=== PATIENT | male | born 1970 | race Caucasian/White ===

== ENCOUNTER → 2024-08-05 06:45 | Outpatient (REF) | payer OTHER, SELFPAY | LOC: MRI 3T 06:45 | PROVIDERS: ATTENDING PHYSICIAN Anesthesiology; FAMILY PHYSICIAN Family Medicine | DX: M54.16 Radiculopathy, lumbar region (principal) | CPT/HCPCS: 72148 ==

== ENCOUNTER 2024-12-23 06:27 | Day surgery (SDC) | payer OTHER, SELFPAY | END 2024-12-23 13:15 | disposition home or self-care (01) | LOC: GI 06:27 | PROVIDERS: ATTENDING PHYSICIAN Internal Medicine Gastroenterology | DX: Z12.11 Encounter for screening for malignant neoplasm of colon (principal); K57.30 Diverticulosis of large intestine without perforation or abscess without bleeding; K64.8 Other hemorrhoids | CPT/HCPCS: G0121 ==

== ENCOUNTER → 2025-04-08 16:00 | Outpatient (REF) | payer OTHER, SELFPAY | LOC: RCS 16:00 | PROVIDERS: ATTENDING PHYSICIAN Internal Medicine; FAMILY PHYSICIAN Family Medicine | DX: I49.5 Sick sinus syndrome (principal) | CPT/HCPCS: 93306 ==

== ENCOUNTER 2025-04-12 05:57 | Day surgery (SDC) | payer OTHER, SELFPAY ==
[2025-04-05 08:50] LABS: % Basophils 0.7 % (0-2); % Eosinophils 1.7 % (0-6); % Immature Granulocytes 0.2 % (0-0.5); % Lymphocytes 42.9 % (20.5-51.1); % Monocytes 12.3 % (1.7-9.3); % Neutrophils 42.2 % (42.2-75.2); Absolute Eosinophils 0.1 10^3/uL (0-0.7); Absolute Lymphocytes 2.3 10^3/uL (1.2-3.4); Absolute Monocytes 0.7 10^3/uL (0.1-0.6); Absolute Neutrophils 2.3 10^3/uL (1.4-6.5); Hematocrit 40.7 % (39.0-52.0); Hemoglobin 14.1 g/dL (13.0-18.0); Mean Corp Hgb Conc. 34.6 g/dL (33.0-37.0); Mean Corpuscular Hgb 32.6 pg (27.0-31.0); Nucleated Red Blood Cells % 0 % (-); Platelet Count 189 10^3/uL (130-400); Red Blood Cell Count 4.33 10^6/uL (4.70-6.10); Red Cell Dist. Width 12.4 % (11.5-14.5); White Blood Cell Count 5.4 10^3/uL (4.8-10.8)
[2025-04-05 09:24] LABS: ALT (SGPT) 19 U/L (0-50); AST (SGOT) 21 U/L (17-59); Albumin 3.9 g/dl (3.5-5.0); Alkaline Phosphatase 35 U/L (38-126); Blood Urea Nitrogen 24 mg/dl (9-20); Calcium 9.2 mg/dl (8.4-10.2); Carbon Dioxide 26 mmol/L (22-30); Chloride 107 mmol/L (98-107); Glucose 103 mg/dl (70-99); Potassium 4.8 mmol/L (3.5-5.1); Sodium 141 mmol/L (135-145); Total Bilirubin 0.4 mg/dl (0.2-1.3); Total Protein 6.2 g/dl (6.3-8.2); eGFR > 60.00
[2025-04-05 13:09] VITALS: BMI 28.4
[2025-04-12] VITALS (15 sets, daily range): BP systolic 113–134; BP diastolic 69–97; BMI 27.3
--- NOTE | 2025-04-12 09:22 | ITS.CL.PACE ---
[employer] - Pacemaker Implant
Pacemaker Implant
Procedure Report:
Leadless Pacemaker (Aveir) Implantation:
Mr. Espinoza is a very pleasant 54 yr old gentleman with sick sinus syndrome with occasioanl sinus pause without any ventricular escape with hx of presyncope is noted to have symptomatic bradycardia and is recommended a pacemaker. Given he is
conducting most of the time and his pacing requirement is expected to be low, will proceed with leadless pacemaker with retrievability to replace and benefit for placement of atrial lead if needed. He is recommended a leadless pacemaker.
Indications: Sick sinus syndrome with pauses with syncope
Date of the Procedure:
04/12/25
Pre-Operative Diagnosis: Sick sinus syndrome with pauses with syncope
Post-Operative Diagnosis: Sick sinus syndrome with pauses with syncope
Procedure Performed: Leadless pacemaker placement
Performing Physician:
Xuan Redd MD
Anesthesia:
See anesthesia records
Pre-operative antibiotics:
None
Detailed Description of the Procedure:
Written informed consent was obtained from the patient after a full explanation of the risks and benefits of the procedure including the risks of sedation and anesthesia.
The patient was brought to the electrophysiology laboratory in stable condition in fasting state. Continuous electrocardiographic and hemodynamic monitoring was initiated.
The initial rhythm was sinus.
The procedure site was meticulously prepared with surgical scrub and allowed to dry with no pooling. Sterile draping was applied to cover the procedure site. The image intensifier was draped with sterile bag and positioned over the patient.
After infusion of local anesthetic, vascular access was obtained under ultrasound guidance and sheaths were placed over guide wire as detailed below.
An 8Fr sheath in right femoral vein was placed and the guide wire was placed into the right IJ. Multiple gradually increasing dilators were placed and ultimately a 22Fr dilator was placed. then the 27 Fr Aveir outer sheath outer sheath was
successfully and carefully advanced to the RA.
Leadless Pacemaker (Micra) implantation:
The delivery system of the Aveir was prepped with removal of all air underwater and was advanced into the sheath to the RA with continuous saline irrigation. The sheath was pulled back to the IVC.
The delivery sheath was not easily crossing the tricuspid valve and a venogram using a pigtail was done marking the entrance into the RV cavity. Then the AVEIR delivery sheath was advanced into the RV cavity. The delivery system was placed against
the ventricular septum using BUENO and REFUGIO fluoroscopic views and the septal approximation was confirmed with contrast injection. Once adequate location was confirmed, the covering sheath was pulled out and the RV septum was mapped. The sensitivity,
threshold and the impedance was recorded.
The leadless AVEIR pacemaker was readjusted a few times to get the best apical septal location by covering the locking mechanism with the cover and moving to a better location.
The coil of the Aveir device got caught and appeared deformed. The device was removed and replaced with a new device in the same fashion as noted above. Once adequate location was obtained, 50/50 contrast was injected in BUENO and REFUGIO and adequate
location was obtained.
Once adequate sensing, impedance and thresholds were noted, the decision was made to deploy the device. The pacemaker was imaged using fluoroscopy and a total of one and a half tuned was applied to the tip of the locking mechanism of pacemaker by
imaging the chevron marker on the pacemaker.
The Aveir pacemaker was attached successfully to the RV septum. The pacemaker was tested and adequate sensing and threshold noted.
Next, the tug test was done with the pulling the attached suture under fluoroscopic guidance with flexing and extending the anchoring sheath showing fixed and engaged pacemaker tip. The PPM again was tested showing stable thresholds and excellent
sensing.
Then the anchoring stylets were released and the pacemaker was released successfully without any change in the location. The anchors were pulled out of the heart into the outer sheath.
The delivery system sheath was pulled back to the IVC and the PPM was again tested showing stable numbers.
Device Information:
Rivero Leadless (Aveir) pacemaker-
����������� Model #: [id number]; Serial Number: [id number] @ RV septum
[place] parameter settings were VVI 50 bpm. �
Measured data in the Aveir was sensing of 7 mV, impedance of 960 ohms and the threshold of 0.75 V at 0.4ms.
Procedure End
Following the completion of the Aveir implant, catheters were removed. The decision was made to also place a �figure of 8� sutures. The sheaths were removed and hemostasis achieved with manual compression.
Estimated Blood loss:
<5 cc
Specimens Removed:
None.
Implants / Devices:
None
Urine output:
None
Packs / Drains/ Tubes:
None
Instrument / Sponge Count Correct:
Yes
Complications of the Procedure:
None
Condition of Patient at Time of Transfer:
Hemodynamically stable with no neurological or vascular compromise.
Summary:
Successful implantation of MRI compatible Rivero Leadless ventricular pacemaker (Aveir VR)
[2025-04-12] MEDS: TYLENOL 650 MG PO (10:01)
[2025-04-12] MEDS: MAALOX 30 ML PO (14:33)
== END 2025-04-12 16:03 | disposition home or self-care (01) ==
LOC: CATH 05:57
PROVIDERS: ATTENDING PHYSICIAN Internal Medicine Cardiovascular Disease; FAMILY PHYSICIAN Family Medicine; OTHER PHYSICIAN Internal Medicine
DX: I49.5 Sick sinus syndrome (principal); Z88.1 Allergy status to other antibiotic agents; R55 Syncope and collapse; J45.909 Unspecified asthma, uncomplicated; E88.01 Alpha-1-antitrypsin deficiency
CPT/HCPCS: 33274; 36415; 71045; 80053; 85025; 93005; C1769; C1786; C1887; C1894; Q9967

== ENCOUNTER 2025-04-13 04:32 | Observation (INO) | payer OTHER, SELFPAY ==
[2025-04-12 22:15] VITALS: BP 150/100
[2025-04-12 22:35] VITALS: BP 131/85
[2025-04-12 22:45] VITALS: BMI 22.1
[2025-04-12 22:50] LABS: % Basophils 0.3 % (0-2); % Eosinophils 2.3 % (0-6); % Immature Granulocytes 0.2 % (0-0.5); % Lymphocytes 29.3 % (20.5-51.1); % Monocytes 10.7 % (1.7-9.3); % Neutrophils 57.2 % (42.2-75.2); Absolute Eosinophils 0.2 10^3/uL (0-0.7); Absolute Lymphocytes 2.5 10^3/uL (1.2-3.4); Absolute Monocytes 0.9 10^3/uL (0.1-0.6); Absolute Neutrophils 4.9 10^3/uL (1.4-6.5); Hemoglobin 14.6 g/dL (13.0-18.0); Mean Corp Hgb Conc. 34.8 g/dL (33.0-37.0); Mean Corpuscular Hgb 31.9 pg (27.0-31.0); Mean Corpuscular Volume 91.9 fL (80.0-94.0); Mean Platelet Volume 10.2 fL (7.4-10.4); Nucleated Red Blood Cells % 0 % (-); Platelet Count 202 10^3/uL (130-400); Red Blood Cell Count 4.57 10^6/uL (4.70-6.10); Red Cell Dist. Width 12.3 % (11.5-14.5); White Blood Cell Count 8.7 10^3/uL (4.8-10.8)
[2025-04-12 23:00] VITALS: BP 126/83
--- NOTE | 2025-04-12 23:01 | ED.GENMED ---
History of Present Illness
General
Chief Complaint: Breathing Problem
Source: patient and family
Exam Limitations: none
Time Seen by Provider: 04/12/25 23:00
Nursing documentation reviewed up to this point in time: agreed with
History of Present Illness
History of Present Illness:
54-year-old male presents emergency department due to chills, shortness of breath and chest tightness tonight. He had a leadless pacemaker placed this morning by Dr. Redd.
Past History
Past History
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
ED Past Surgical History: Appendectomy, Tonsilectomy and Other ([place] teeth extraction)
Social History
Tobacco: Non-smoker
Alcohol: Occasional
Drug: None
Personal:
Living: with family
Employment: Employed
Family History
Family History: Early CAD
Review of Systems
Review of Systems
Allergies reviewed?: Yes
All Other Systems: Not applicable
Constitutional: Reports chills
EENT: Reports no symptoms
Respiratory: Reports trouble breathing
Cardiac: Reports no symptoms
ABD/GI: Reports no symptoms
: Reports no symptoms
Musculoskeletal: Reports no symptoms
Skin: Reports no symptoms
Neurological: Reports no symptoms
Endocrine: Reports no symptoms
Hematologic/Lymphatic: Reports no symptoms
Psychiatric: Reports no symptoms
Phy Exam
Physical Exam
Physical Exam:
Physical Exam
General: no apparent distress, not acutely ill
Neck: supple. no meningeal signs. normal posterior pharynx
Heart: s1/s2 regular rate and rhythm, no murmur. equal radial
pulses.
HEENT: Pupils equal round reactive to light, EOMI
Lungs: no acute respiratory distress. clear bilaterally
Abdomen: normal bowel sounds. not tender. no CVAT
Neuro: alert and oriented. no focal neurological deficits cranial nerves II through XII intact
Skin: no rash, right groin wound intact, no swelling or leakage
Psychiatric: well kept. interactive and cooperative
Extremities: no edema. no calf tenderness. negative homans. good distal pulses
Scores
Heart Failure Risk
Heart Failure Risk Score: Not Applicable
Course
Orders/Labs/Results
Orders:
Orders
04/12/25 22:20
ECG [Electrocardiogram (*1)] Urgent
Reason for Study: Chest Pain
EKG- Treatment ONCE
04/12/25 22:40
Complete Blood Count/With Diff Urgent
Comprehensive Metabolic Panel Urgent
NT-proBNP Urgent
PTT Urgent
Troponin I Urgent
04/12/25 23:41
Lorazepam [Ativan] 0.25 mg PO NOW STA
04/13/25 00:01
CT Chest PE Study Urgent
Reason For Exam: short of breath, recent pacer
Abnormal Lab Results
04/12/25
22:40
RBC 4.57 L 10^6/uL
(4.70-6.10)
MCH 31.9 H pg
(27.0-31.0)
Absolute Monos (auto) 0.9 H 10^3/uL
(0.1-0.6)
Monocytes % 10.7 H %
(1.7-9.3)
Glucose 112 H mg/dl
(70-99)
Troponin I 0.746 H* ng/ml
04/12/25 22:40
04/12/25 22:40
Vital Signs
Initial and Last Documented VS:
Initial Vital Signs
Temp Pulse Resp BP Pulse Ox
97.6 F 82 20 150/100 99
04/12/25 22:15 04/12/25 22:15 04/12/25 22:15 04/12/25 22:15 04/12/25 22:15
Last Documented Vital Signs
Temp Pulse Resp BP Pulse Ox
97.6 F 70 14 120/80 94
04/12/25 22:15 04/13/25 02:15 04/13/25 02:15 04/13/25 02:00 04/13/25 02:15
MDM/Problems Addressed
Differential Diagnosis Includes:
Pulmonary embolism, pneumonia, pericardial effusion
MDM/Problems Addressed:
54-year-old male with chest tightness with deep breaths. No signs of PE. Troponin elevated, likely resultant from recent pacemaker placement, but will admit for troponin trending and further evaluation.
Chronic conditions affecting care: Other (Sick sinus syndrome)
*Radiology
Radiology exam reviewed: radiology read reviewed (CT chest no acute findings)
*Pulse Oximetry
Patient hypoxic: no
*EKG
Interpreted by ED Provider?: Yes
EKG Intrepretation Date: 04/12/25
EKG Intrepretation Time: 22:25
Interpretation: abnormal
Comparison EKG: no changes
Heart Rate: 68
Rate: normal
Rhythm: sinus
[place]: normal axis
Interval: normal interval
QRS Pattern: normal QRS
Ischemia: no ischemia
*Annealing Torch Operator Interpretation
Rate: normal
Interpretation: normal
Heart Rate: 70
Rhythm: sinus
*Critical Care Note
Total Time (30-74mins, 75-104mins- exclusive of procedures): Not Applicable
Data Reviewed
Review of Other/Old Records Reveals: Operative Reports (leadless pacemaker placed by Dr. Redd 04/12/25)
Source: records
Patient Management
Social determinants of health affecting care: Living situation and Strong social support
Discussion with other providers: Forest Economist (cardiology Dr. Mir)
Escalation/DeEscalation of care consider admission/obs:
Admit indicated
ED Attending Note
-
Portions of this chart may have been created with voice recognition software.� Occasional wrong word or��sound alike� substitutions may have occurred due to the inherent limitations of voice recognition software.
Discharge Plan
Departure
Patient Disposition: Admit
Date of Disposition: 04/13/25
Time of Disposition: 02:42
Admit to: IVU
Presentation/result/management discussed w/ accepting MD/DO: Hospitalist
Patient with high blood pressure during this ER visit?: Yes
Condition: Good
Discharge Problem:
Chest pain
Prescriptions:
No Action
lorazepam 0.5 mg Tablet
0.5 mg DAILY
fluoxetine 15 mg Tablet
15 mg PO DAILY
Referrals:
NONE,* [Family Provider] -
Interventions
Interventions:
*Risk Screen - Suicide Last Done: 04/12/25 22:58
*General Assessment Last Done: 04/12/25 22:15
*Neglect/Abuse Screening Last Done: 04/12/25 23:08
*ED- Fall Risk Assessment Last Done: 04/12/25 22:58
*ED COVID-19 Vaccine History Last Done: 04/12/25 22:45
ED- Cardiac Assessment Last Done: 04/12/25 22:58
ED- Pulmonary Assessment Last Done: 04/12/25 22:58
Discharge Date and Time
Print Language: QATARI
[2025-04-12 23:04] LABS: ALT (SGPT) 30 U/L (0-50); AST (SGOT) 33 U/L (17-59); Albumin 4.2 g/dl (3.5-5.0); Alkaline Phosphatase 43 U/L (38-126); Blood Urea Nitrogen 19 mg/dl (9-20); Calcium 9.6 mg/dl (8.4-10.2); Carbon Dioxide 27 mmol/L (22-30); Chloride 107 mmol/L (98-107); Estimated Creatinine Clearance 81 ml/min; Glucose 112 mg/dl (70-99); Potassium 3.9 mmol/L (3.5-5.1); Sodium 139 mmol/L (135-145); Total Bilirubin 0.9 mg/dl (0.2-1.3); Total Protein 6.7 g/dl (6.3-8.2); eGFR > 60.00
[2025-04-12 23:10] LABS: APTT 30.8 Sec (23.4-35.0)
[2025-04-12 23:15] LABS: NT-proBNP 79.6 pg/ml; Troponin I 0.746 ng/ml
[2025-04-12] MEDS: ATIVAN 0.25 MG PO (23:57)
[2025-04-13] VITALS (10 sets, daily range): BP systolic 116–132; BP diastolic 72–85
[2025-04-13 03:59] LABS: Troponin I 0.438 ng/ml
[2025-04-13] MEDS: ATIVAN 0.5 MG PO ×2 (04:00→07:58)
--- NOTE | 2025-04-13 04:11 | HPS.HSE ---
Family Physician
-
Family Physician: * NONE
Chief Complaint
-
Chest tightness
History of Present Illness
This is a 54-year-old with past medical history significant for sick sinus syndrome status post leadless pacemaker placement on 512 morning who presents to the emergency department after arriving home with some chest tightness and shakes and rigors.
Patient reported that the procedure was noneventful. After arriving home initially was doing well. Returning evening he said he developed sensation of cracks in his chest as well as to the bubbles in his chest. After questioning of whether he
feels that this may be related to irritation status post extubation. He denies any cough or wheezing. He denies any chest pain. He denies coughing up any blood. He reports having shakes and chills at home but denies any known fever. He denies
any pain in his groin.
In the emergency department he remained afebrile with a temp of 97.6, blood pressure was 120/85 with a pulse of 74 negative. ECG shows a normal sinus rhythm at a rate of 68. No acute ST or T wave changes.
CT of the chest negative for dissection, aneurysm, bleed or PE. The lung parenchyma was completely normal.
CBC was completely normal. Electrolytes BUN and creatinine were all normal. Troponin was initially 0.74, repeat was 0.43.
Medical History
Past Medical History
Past Medical History: Reports Psychiatric
Additional Past Medical History:
Sick sinus syndrome
Past Surgical History: Reports Orthopedic (Hip replacement)
Social History
Tobacco: Non-smoker
Alcohol: None
Drug: None
Personal:
Living: With Family
Employment: Employed
Family History
Family History: Not pertinent
Allergies / Home Medications
Allergies reflects when Allergies were last updated in [facility].
Home Medications with original date entered in [facility]
Allergy/Medication List:
Allergies
Allergy/AdvReac Type Severity Reaction Status Date / Time
tetracycline Allergy Unknown Verified 04/12/25 22:15
Home Medications
fluoxetine 15 mg tablet 15 mg PO DAILY 04/12/25
lorazepam 0.5 mg tablet 0.5 mg DAILY 04/12/25
Review of Systems
-
History Source: Patient
Constitutional: Reports No Symptoms
EENT: Reports No Symptoms
Respiratory: Reports No Symptoms
Cardiac: Reports Chest Pain
Abdomen/GI: Reports No Symptoms
: Reports No Symptoms
Musculoskeletal: Reports No Symptoms
Skin: Reports No Symptoms
Neurological: Reports No Symptoms
Endocrine: Reports No Symptoms
Hematologic/Lymphatic: Reports No Symptoms
Psych: Reports No Symptoms
Physical Exam
Vital Signs
Vital Signs
Temp Pulse Resp BP Pulse Ox
97.6 F 74 18 119/85 96
04/12/25 22:15 04/13/25 03:45 04/13/25 03:45 04/13/25 03:00 04/13/25 03:45
Physical Exam
General: Well Developed, Well Nourished, No Apparent Distress and Comfortable
HEENT: NormoCephalic, Anicteric, Moist mucous membranes and Atraumatic
Respiratory: Clear
Cardiac: S1/S2 and Regular Rhythm
Breast: Deferred by me
GI: Soft, Non Tender, Non Distended and Normal Bowel Sounds
Rectal: Deferred by Provider
Genito-urinary: Deferred by me
Musculoskeletal: No Clubbing, No Cyanosis and No Edema
Skin: Warm and IV/Catheter Site (Groin site warm dry intact no bleeding)
Neuro: AO x 3 and Nonfocal/grossly intact
Hematologic/Lymphatic: No Lymphadenopathy
Psych: Calm
Laboratory Results
-
04/12/25 22:40
04/12/25 22:40
Laboratory Results
APTT 30.8 Sec (23.4-35.0) 04/12/25 22:40
Total Bilirubin 0.9 mg/dl (0.2-1.3) 04/12/25 22:40
AST 33 U/L (17-59) 04/12/25 22:40
ALT 30 U/L (0-50) 04/12/25 22:40
Alkaline Phosphatase 43 U/L (38-126) 04/12/25 22:40
Troponin I 0.438 ng/ml H* D 04/13/25 03:08
Data Reviewed
-
CT Scan: Report Reviewed by me
Medical Tests (Nuc Med, Echo, EKG etc): Image Personally Visualized and interpreted
Lab Data: Labs Reviewed by me
Old Records: Reviewed
Impression/Plan
-
IMPRESSION:
54-year-old who is postop day #1 status post leadless pacemaker placement presenting to the emergency department with some shortness of breath and chest tightness as well as sensation of chills. Initial troponin was 0.7, repeat was 0.4. CT of the
chest negative for any dissection, aneurysm, bleeding or PE. The lungs are clear. He is not wheezing nor does he have any crackles. He currently has no chest pain. He is hemodynamically stable. ECG shows normal sinus rhythm.
PLAN:
1. S/P PPM with chest tightness/pain -possibly post extubation irritation but no acute complication on imaging. Cannot rule out an infection
- admit to telemetry obs
- monitor fever profile, hold off on cultures
- trend trops, trending down at this time, no heparin
- echo and further testing per cards if needed
- cardiology consulted and aware
DVT PPX - SCDs
Code status - full code
[2025-04-13 06:58] LABS: Troponin I 0.354 ng/ml
--- NOTE | 2025-04-13 09:15 | W.PN.HOSP.TC ---
Addendum entered and electronically signed by Nessa Emerson MD 04/13/25 14:20:
total DC time 40 min
Original Note:
Today's Communication/Plan
-
see A/P
Assessment / Plan
Assessment / Plan
54-year-old M with past medical history significant for sick sinus syndrome status post leadless pacemaker placement on 04/12 morning who presented to the emergency department after arriving home with some chest tightness and shakes and rigors.
Patient reported that the procedure was noneventful. After arriving home initially was doing well. Then developed sensation bubbles in his chest. He reports having shakes and chills at home but denies any known fever.
CT of the chest negative for dissection, aneurysm, bleed or PE. The lung parenchyma was completely normal.
A/P:
# SSS s/p PPM with chest tightness/pain- possibly 2/2 post extubation irritation but no acute complication on imaging. Cannot rule out an infection
# non-ischemic myocardial injury
Check blood cultures x2
Check echo
monitor temp
Troponin downtrending, elevated initially likely due to non-ischemic myocardial injury
cardiology consulted
DVT PPX - SCDs
Code status - full code
DW at bedside
Anticipated Discharge: Within 24 hours
Subjective/Interval History
-
Date of Service: April 13, 2025
Objective Data
-
Labs:
Laboratory Results
04/12/25
22:40
WBC 8.7
Hgb 14.6
Hct 42.0
Plt Count 202
APTT 30.8
Sodium 139
Potassium 3.9
Chloride 107
Carbon Dioxide 27
BUN 19
Creatinine 1.0
Glucose 112 H
Calcium 9.6
Total Bilirubin 0.9
AST 33
ALT 30
Alkaline Phosphatase 43
Vital Signs:
Vital Signs
Temp Pulse Resp BP Pulse Ox
36.8 C 85 17 120/73 98
04/13/25 07:32 04/13/25 07:32 04/13/25 07:32 04/13/25 07:32 04/13/25 07:32
Review of Systems
-
History Source: Patient
Cardiac: Reports Chest Pain
Physical Exam
-
General: Well Developed, Well Nourished, No Apparent Distress, Comfortable and Conversant; Negative Respiratory Distress
HEENT: Normocephalic, Atraumatic, Nose Appears Normal and Ears Appear Normal; Negative Oxygen
Respiratory: Clear to Auscultation and Non Labored Respirations; Negative Accessory Resp Muscle Use
Cardiac: Regular Rhythm and S1/S2
GI: Soft, Nontender, Nondistended and Normal Bowel Sounds
Skin: Warm and Dry
Neuro: Awake, Alert, Oriented, AO x 3 and Nonfocal/Grossly Intact
Psych: Calm and Intact Judgement/Insight
Data Reviewed
-
Labs: Labs Reviewed by me
--- NOTE | 2025-04-13 09:26 | CON.CAR ---
Addendum entered and electronically signed by Luma Fonseca MD 04/13/25 10:42:
I saw and examined the patient.
The MANUFACTURING APPLICATIONS ENGINEER's note was reviewed and I agree with the note.
Comment: 54-year-old male with past medical history of recent pacemaker implant on 04/12/2025 (Rivero leadless system) for sick sinus syndrome and syncope, asthma, alpha 1 antitrypsin and juvenile arthritis presents with recurrence of feeling
shortness of breath and shakiness last night. He had been discharged home yesterday after placement. At times he felt like he had some chest tightness when taking a deep breath then. He has a bit of a cough today. He does note that he struggles
with allergies at times. Currently he is feeling better than he was yesterday without any intervention. On exam he is well-appearing in no apparent distress with an RRR S1-S2 no murmur rubs gallops or appreciated lungs are clear to auscultation
extremities are warm well-perfused on a clubbing cyanosis or edema. EKG was normal sinus rhythm without any ischemic changes. Troponin noted but this is in the presence of a leadless pacemaker implant yesterday. CT scan images reviewed no
effusion seen there. Overall, this is a constellation of nonspecific somatic complaints after permanent pacemaker implant. CT scan was negative for PE, pleural effusion and or any infiltrate. EKG without ischemic changes. Troponin noted but in
the setting of a pacemaker implant unclear of the significance of this. Additionally more portly has no symptoms to suggest ACS. Will update an echocardiogram. If no new wall motion abnormality or effusion, would offer reassurance. EKG does not
support a diagnosis of pericarditis and he has no symptoms of that at this time. We will ask the device company to interrogate his device. Okay to discharge from a cardiovascular perspective visit if echocardiogram is normal. Will sign off
probably downward spiral.
Original Note:
Consultation
Consultation Request
Date/Time Consultation Requested: 04/13/25 5a
Date/Time Consultation Performed: 04/13/25 8:45a
Requesting Provider: Dr. Isaac
Performing Provider: KING Maxwell for Dr. Fonseca
Reason for Consultation: sob s/p Micra implant 04/12/25
Medical History
-
Chief Complaint: sob
History of Present Illness:
Mr. Espinoza is a 54 yo male with symptomatic bradycardia, SSS s/p Rivero Aveir leadless PPM implanted 04/12/25, asthma, alpha-1 antitrypsin deficiency MZ phenotype, TNF receptor associated periodic syndromes (TRAPS), juvenile rheumatoid arthritis,
PVCs and osteoarthritis, who presents to the ER with c/o SOB and feeling shaky that began last night. He was discharged home in the afternoon, walking around his house feeling OK. Then after dinner he went to bed and started to feel constriction in
his chest/tight when taking a deep breath in, with warm feeling in his legs and shaky. His symptoms of near syncope start with a warm feeling in his legs, he denies dizziness or syncope. He also c/o a sore throat. His troponin trend is 0.746,
0.438, 0.354 and he denies any chest pain or SOB currently. CXR post implant was stable yesterday afternoon and Chest CT in ER is negative for acute abnormality.
Past Medical History
Past Medical History: Other (as above)
Past Surgical History: Appendectomy, Orthopedic (left CORNELIUS 09/2020), Tonsilectomy and Other (vasectomy)
Social History
Tobacco: Non-Smoker
Alcohol: Occasional
Personal:
Living: With Family
Employment: Employed
Family History
Family History: Reviewed & Not Pertinent
Allergies / Home Medications
Allergy/AdvReac Type Severity Reaction Status Date / Time
tetracycline Allergy Unknown Verified 04/12/25 22:15
�Medication �Instructions �Recorded �Confirmed �Type
fluoxetine 15 mg tablet 15 mg PO DAILY 04/12/25 04/12/25 History
lorazepam 0.5 mg tablet 0.5 mg DAILY 04/12/25 04/12/25 History
Review of Systems
-
History Source: Patient
All other systems: Negative unless noted
Physical Exam
Vital Signs
Temp Pulse Resp BP Pulse Ox
98.2 F 85 17 120/73 98
04/13/25 07:32 04/13/25 07:32 04/13/25 07:32 04/13/25 07:32 04/13/25 07:32
Lab Results
04/12/25 22:40
04/12/25 22:40
Troponin I 0.354 ng/ml H* 04/13/25 06:10
Qkp-Y-Gapmmrjsckz Pept 79.6 pg/ml 04/12/25 22:40
Physical Exam
General: Well Developed, Well Nourished and No Apparent Distress
HEENT: Normocephalic, Anicteric and Moist Mucous Membranes
Respiratory: Clear and Non Labored Respirations
Cardiac: S1/S2 and Regular Rhythm
Breast: Deferred by me
GI: Soft, Non Tender, Non Distended and Normal Bowel Sounds
Rectal: Deferred by Provider
Genito-urinary: Clear Urine
Musculoskeletal: No Clubbing, No Cyanosis and No Edema
Skin: Warm, Dry and Other (right groin site stable with intact dressing)
Neuro: AO x 3
Hematologic/Lymphatic: No Lymphadenopathy
Psych: Calm
Impression / Plan
-
SOB - constriction feeling with deep breath.
- post leadless PPM.
- Chest CT negative for acute abnormality.
- check echo today.
SSS/symptomatic bradycardia - s/p Rivero Aveir leadless PPM 04/12/25.
- post implant CXR was stable w/o abnormality.
- interrogate his device.
- right groin site stable with intact dressing.
Non-ischemic myocardial injury - acute s/p leadless PPM implant 04/12/25.
- troponin trended down (0.746, 0.438, 0.354).
- denies chest pain or SOB currently.
- EKG w/o acute ischemia.
Data Reviewed
-
EKG: Tracing Personally Visualized and interpreted
Radiology: Report Reviewed by me
Medical Tests (Nuc Med, Echo etc): Report Reviewed by me (echo 04/08/25: normal biventricular size and function w/o RWMA, no valve disease.)
Labs: Labs Reviewed by me
Old Records: Reviewed
[2025-04-13] MEDS: TYLENOL 650 MG PO (09:49)
[2025-04-13] MEDS: NON-FORMULARY ITEM 15 MG PO (09:50)
[2025-04-13 10:31] LABS: Troponin I 0.293 ng/ml
--- NOTE | 2025-04-13 12:35 | CM ---
CM met with pt and family bedside
Pt ready for dc
No dc needs noted
Family will transport home
OBS form completed- copy provided to pt
Discharge Disposition- home no needs
--- NOTE | 2025-04-13 13:10 | EDRN ---
Reviewed discharge instructions with patient. Verbalized understanding. Ambulated with steady gait to the lobby.
--- NOTE | 2025-04-13 14:16 | W.DCSUMMARY ---
Discharge Summary
Discharge Data
Date of Admission: 04/13/25
Date of Discharge: 04/13/25
-
Pending Results: No
Hospital Course
Principal Diagnosis:
Chest tightness/mild pain following pacemaker placement
Chronic Diagnoses:�
Sick sinus syndrome status post leadless pacemaker placement on 04/12
Consultations:�
Cardiology
Procedures:�
None
Clinical course:�
This is a 54-year-old male with past medical history as stated above, who just had a leadless pacemaker placed on 04/12/2025, returned due to chest tightness and chills.
Problem 1:
Chest tightness/mild pain following pacemaker placement.
His CT chest was unrevealing.
His pacemaker was interrogated with good function.
Blood cultures x2 were obtained which can be follow-up after discharge (symptom of chill likely due to anesthesia effect)
And echo obtained this admission was also unrevealing.
Patient was seen by cardiology and was cleared for discharge.
As for the rest of his medical problems, they were stable during his hospital stay.
Discharge Plan
-
Patient Disposition: Home (Routine Discharge)
Discharge Diagnosis/Procedures: recent pacemaker implant on 04/12/2025 ([employer] leadless system) for sick sinus syndrome
Condition: Good
Diet: As tolerated
Activity: As tolerated
Driving Restrictions: As prior to admission
Referrals:
NONE,* [Family Provider] - in less than 1 week
Prescriptions:
Continued
lorazepam 0.5 mg Tablet
0.5 mg PO DAILYPRN PRN (Reason: anixety)
fluoxetine 10 mg Tablet
15 mg PO DAILY
Discharge Orders:
Discharge Patient (As Directed); Ordered 04/13/25
Ordered By: Nessa Emerson
Discharge Date and Time
Discharge Date/Time: 04/13/25 13:24
Print Language: BELGIAN
== END 2025-04-13 13:24 | disposition home or self-care (01) ==
LOC: ED 04:32
PROVIDERS: Student in an Organized Health Care Education/Training Program; ADMITTING PHYSICIAN Internal Medicine; ATTENDING PHYSICIAN Internal Medicine; EMERGENCY PHYSICIAN Emergency Medicine; OTHER PHYSICIAN Internal Medicine Cardiovascular Disease
DX: R06.02 Shortness of breath (principal); R07.89 Other chest pain; I5A Non-ischemic myocardial injury (non-traumatic); R50.9 Fever, unspecified; I49.5 Sick sinus syndrome; I51.7 Cardiomegaly; R79.89 Other specified abnormal findings of blood chemistry; E88.01 Alpha-1-antitrypsin deficiency; J45.909 Unspecified asthma, uncomplicated; M08.00 Unspecified juvenile rheumatoid arthritis of unspecified site; Z95.0 Presence of cardiac pacemaker; Z90.49 Acquired absence of other specified parts of digestive tract; Z82.49 Family history of ischemic heart disease and other diseases of the circulatory system; Z96.649 Presence of unspecified artificial hip joint; Z88.1 Allergy status to other antibiotic agents
CPT/HCPCS: 93308; 71275; 80053; 83880; 84484; 85025; 85730; 87040; 93005; Q9967

== ENCOUNTER 2025-04-16 16:12 | Emergency (ER) | payer OTHER, SELFPAY ==
[2025-04-16 16:16] VITALS: BP 134/91
[2025-04-16 16:31] VITALS: BMI 28.2
--- NOTE | 2025-04-16 16:53 | ED.GENMED ---
History of Present Illness
General
Chief Complaint: Vascular Symptoms
Time Seen by Provider: 04/16/25 16:53
History of Present Illness
History of Present Illness:
TIME OF INITIAL ENCOUNTER: 5 PM
HPI: The patient had [employer] leadless pacemaker placed with right groin access on 04/12/2025. He presents today due to right groin bruising and swelling. When he left the hospital he states there was no significant abnormal finding at the right
groin. He notified Dr. Cruz's group who wanted him to come in here for further evaluation
EXAM:
GENERAL: Well appearing in no distress
HEENT: Moist oral mucosa
NEUROLOGIC: Excellent strength all extremities, no obvious coordination deficits
PSYCHIATRIC: Appropriate mental status, normal insight and judgement
EXTREMITIES/SKIN: There is moderate tenderness to palpation in the right femoral artery region (I was unable to definitively palpate the pulse as he could not tolerate the pressure), there is surrounding ecchymosis, no bruit
NUMBER AND COMPLEXITY OF PROBLEMS ADDRESSED AT THE ENCOUNTER
� Chronic conditions affecting care: Sick sinus syndrome, recent pacemaker
� Acute Exacerbation and/or Progression of Chronic Illness: This is an acute problem
� Differential Diagnosis includes: Pseudoaneurysm, aneurysm, no evidence for infection
AMOUNT AND/OR COMPLEXITY OF DATA TO BE REVIEWED AND ANALYZED
� I performed an independent evaluation of and my interpretation is:
EKG:
CT:
X-rays:
Laboratory Studies:
Other: Ultrasound imaging shows no sign of pseudoaneurysm
� Review of other/old records: I reviewed records, the patient presented with sick sinus syndrome and presyncope/symptomatic bradycardia and pacemaker was recommended. The patient had access from the right femoral vein and
guidewire was placed into the right IJ
� Clinical information was obtained by an independent historian: I spoke to the at bedside
� Prescriptions/Medications Considered but not given: No indication for labs
� Further testing considered but not performed:
RISK OF COMPLICATIONS AND/OR MORBIDITY OR MORTALITY OF PATIENT MANAGEMENT
� Social determinants of health affecting care: Lives at home
� Discussion with other providers: I notified Dr. Frederick covering for vascular
� Escalation of care including admission/observation vs risk of discharge considered:
ANY OTHER UPDATES:
I received message from batch room technician indicating the patient has a hematoma with no evidence of pseudoaneurysm
Past History
Past History
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
ED Past Surgical History: Appendectomy, Tonsilectomy and Other ([place] teeth extraction)
Social History
Tobacco: Non-smoker
Alcohol: Occasional
Drug: None
Personal:
Living: with family
Employment: Employed
Family History
Family History: Early CAD
Phy Exam
Physical Exam
Physical Exam:
See HPI
Course
Orders/Labs/Results
Orders:
Orders
04/16/25 17:31
US Groin (vascular exam) RT Urgent
Comment:
Reason For Exam: eval for pseudoaneurysm
Vital Signs
Initial and Last Documented VS:
Initial Vital Signs
Temp Pulse Resp BP Pulse Ox
37.1 C 93 18 134/91 96
04/16/25 16:16 04/16/25 16:16 04/16/25 16:16 04/16/25 16:16 04/16/25 16:16
Last Documented Vital Signs
Temp Pulse Resp BP Pulse Ox
37.1 C 90 18 130/90 97
04/16/25 16:16 04/16/25 19:03 04/16/25 19:03 04/16/25 19:03 04/16/25 19:03
*Critical Care Note
Total Time (30-74mins, 75-104mins- exclusive of procedures): Not Applicable
ED Attending Note
-
Portions of this chart may have been created with voice recognition software.� Occasional wrong word or��sound alike� substitutions may have occurred due to the inherent limitations of voice recognition software.
Discharge Plan
Departure
Patient Disposition: Home (Routine Discharge)
Date of Disposition: 04/16/25
Time of Disposition: 18:53
Patient with high blood pressure during this ER visit?: Yes
Discharge Problem:
Hematoma
Instructions: BLOOD PRESSURE, Hematoma
Prescriptions:
No Action
lorazepam 0.5 mg Tablet
0.5 mg PO DAILYPRN PRN (Reason: anixety)
fluoxetine 10 mg Tablet
15 mg PO DAILY
Referrals:
Amador Pham MD [Family Provider] -
Xuan Redd MD [Active] - Follow up in 1 week
Activity Restrictions/Additional Instructions:
Ultrasound imaging shows no sign of pseudoaneurysm. Hematoma is noted. Follow-up with your recruitment assistant. Return here if worse or other concerns.
Interventions
Interventions:
*Risk Screen - Suicide Last Done: 04/16/25 16:16
*General Assessment Last Done: 04/16/25 16:16
*Neglect/Abuse Screening Last Done: 04/16/25 16:16
*ED- Fall Risk Assessment Last Done: 04/16/25 16:31
*ED COVID-19 Vaccine History Last Done: 04/16/25 16:31
*Nursing Disposition Last Done: 04/16/25 19:04
ED- Cardiac Assessment Last Done: 04/16/25 16:31
ED- Pulmonary Assessment Last Done: 04/16/25 16:31
ED-Peripheral Vascular Assessment Last Done: 04/16/25 16:33
ED-Skin Assessment Last Done: 04/16/25 16:31
Discharge Date and Time
Discharge Date/Time: 04/16/25 19:04
Print Language: FAROESE
[2025-04-16 19:03] VITALS: BP 130/90
== END 2025-04-16 19:04 | disposition home or self-care (01) ==
LOC: EMR 16:12
PROVIDERS: EMERGENCY PHYSICIAN Emergency Medicine; FAMILY PHYSICIAN Internal Medicine
DX: S30.1XXA Contusion of abdominal wall, initial encounter (principal); X58.XXXA Exposure to other specified factors, initial encounter; J45.909 Unspecified asthma, uncomplicated; Z82.49 Family history of ischemic heart disease and other diseases of the circulatory system; Z90.49 Acquired absence of other specified parts of digestive tract; Z95.0 Presence of cardiac pacemaker
CPT/HCPCS: 99284; 93926

== ENCOUNTER → 2025-11-05 13:34 | Outpatient (REF) | payer OTHER, SELFPAY | LOC: MRI 13:34 | PROVIDERS: ATTENDING PHYSICIAN Student in an Organized Health Care Education/Training Program; FAMILY PHYSICIAN Family Medicine | DX: M54.16 Radiculopathy, lumbar region (principal); M51.26 Other intervertebral disc displacement, lumbar region; M54.50 Low back pain, unspecified | CPT/HCPCS: 72148; 76014; 76015 ==

== ENCOUNTER → 2025-11-10 07:20 | Outpatient (REF) | payer OTHER, SELFPAY | LOC: DHSLP 07:20 | PROVIDERS: ATTENDING PHYSICIAN Internal Medicine; FAMILY PHYSICIAN Internal Medicine | DX: G47.30 Sleep apnea, unspecified (principal); R06.83 Snoring | CPT/HCPCS: 95800 ==